=== PATIENT | female | born 1950 | race African-American/Black ===

== ENCOUNTER 2017-08-28 00:59 | Emergency (ER) | payer MEDICARE, OTHER ==
[~2017-08-28] VITALS: Ht 152.4 cm; Wt 87.1 kg
[2017-08-28 01:05] VITALS: BP 200/103
[2017-08-28 01:37] LABS: HEMATOCRIT 46.7 % (37.0-47.0); HEMOGLOBIN 14.9 G/DL (12.0-16.0); MEAN CORPUSCULAR VOLUME 91 FL (80-99); PLATELET COUNT 159 K/UL (150-450); RED CELL DISTRIBUTION WIDTH 11.7 % (11.6-14.8); WHITE BLOOD COUNT 5.9 K/UL (4.8-10.8)
[2017-08-28 01:44] LABS: ANION GAP 9 mmol/L (5-15); BLOOD UREA NITROGEN 8 mg/dL (7-18); CARBON DIOXIDE 25 MMOL/L (21-32); CHLORIDE 104 MMOL/L (98-107); POTASSIUM 3.8 MMOL/L (3.5-5.1); SODIUM 138 MMOL/L (136-145)
[2017-08-28] MEDS ORDERED: Lisinopril 20mg tab ORAL ONE (02:15)
--- NOTE | 2017-08-28 02:38 | Emergency Room Report ---
History of Present Illness General Chief Complaint: Hypertension Source: Patient, EMS Present Illness HPI This is a 67-year-old female who was recently diagnosed with high blood pressure. This occur because she went to the dentist and her blood pressure was high. She was started on lisinopril 10 mg couple weeks ago. She still have high blood pressure at home and was recently increased to 20 mg yesterday. She came in tonight because her blood pressure was still high. She felt dizzy and has headache. No chest pain. Known nausea no vomiting. No hematuria. EMS said her blood pressure at home was systolic 200. Patient also said she felt nervous because she is worried about her blood pressure being high. Allergies: Coded Allergies: No Known Allergies (Unverified , 08/28/17) Patient History Past Medical History: see triage record, old chart reviewed, HTN Past Surgical History: none Pertinent Family History: none Social History: Denies: smoking Last Menstrual Period: n/a Now: No Immunizations: other Reviewed Nursing Documentation: PMH: Agreed; PSxH: Agreed Nursing Documentation-PMH Past Medical History: No History, Except For Hx Hypertension: Yes - glaucoma Review of Systems Eye: Denies: eye pain, blurred vision ENT: Denies: ear pain, nose congestion, throat swelling Respiratory: Denies: cough, shortness of breath Cardiovascular: Denies: chest pain, palpitations Gastrointestinal: Denies: abdominal pain, diarrhea, nausea, vomiting Musculoskeletal: Denies: back pain, joint pain Skin: Denies: rash Neurological: Reports: headache; Denies: numbness Endocrine: Denies: increased thirst, increased urine Hematologic/Lymphatic: Denies: easy bruising All Other Systems: negative except mentioned in HPI Physical Exam Vital Signs Date Time Temp Pulse Resp B/P (MAP) Pulse Ox O2 Delivery O2 Flow Rate FiO2 08/28/17 00:54 98.1 80 16 200/103 97 Room Air 98.1 vitals with high blood pressure Sp02 EP Interpretation: reviewed, normal General Appearance: well appearing, no apparent distress, alert Head: normocephalic, atraumatic Eyes: right eye other - Right eye is cloudy. Chronic per patient; left eye PERRL; bilateral eye EOMI ENT: hearing grossly normal, normal pharynx Neck: full range of motion, supple, no meningismus Respiratory: chest non-tender, lungs clear, normal breath sounds Cardiovascular #1: regular rate, rhythm, no murmur Gastrointestinal: normal bowel sounds, non tender, no mass, no organomegaly, no bruit, non-distended Musculoskeletal: back normal, gait/station normal, normal range of motion Psychiatric: mood/affect normal Skin: warm/dry Medical Decision Making Diagnostic Impression: Primary Impression: Hypertension Qualified Codes: I10 - Essential (primary) hypertension ER Course Patient with high blood pressure. No evidence of endorgan damage. We'll add a diuretic to her regimen. I would not increase her blood pressure medication since he just started the 20 mg lisinopril yesterday. She is not taking any blood pressure today. Lab Results Impression labs unremarkable EKG Diagnostic Results Rate: normal Rhythm: NSR ST Segments: no acute changes Rhythm Strip Diag. Results Rhythm Strip Time: 02:37 EP Interpretation: yes Rate: 64 Rhythm: NSR, no PVC's, no ectopy CT/MRI/US Diagnostic Results CT/MRI/US Diagnostic Results : Imaging Test Ordered: CT head Impression negative per radiologist Last Vital Signs Date Time Temp Pulse Resp B/P (MAP) Pulse Ox O2 Delivery O2 Flow Rate FiO2 08/28/17 02:15 180/72 08/28/17 01:05 80 16 Room Air 08/28/17 01:05 98.1 97 98.1 Status: improved Disposition: HOME, SELF-CARE Condition: Stable Referrals: [facility] YAS GRANADOS (PCP) Additional Instructions: Follow-up with your doctor in 7 days. Return if symptom worsen. BENITEZ BAILON M.D. August 28, 2017 02:37
[2017-08-28] MEDS ORDERED: LORazepam Inj 2mg/ml 1ml IV ONE (02:45)
[2017-08-28 03:09] VITALS: BP 142/60
[2017-08-28 03:10] VITALS: BP 142/60
--- NOTE | 2017-08-28 10:09 | Diagnostic Imaging Report ---
Indication: Altered mental status, dizzy Technique: Continuous helical CT scanning of the head was performed without intravenous contrast material. Axial and coronal 5 mm sections were generated. Radiation dose was minimized using automated exposure control Dose: Total Dose Length Product - DLP 1316.[address] Dose Index - CTDIvol(s) 70.38 mGy. Comparison: none Findings: The ventricular system is normal in size and configuration. There is no shift of midline structures. No abnormal extra-axial fluid collections are noted. There is no evidence of intracerebral bleeding. No other abnormal high or low density areas are noted within the brain. Normal hernández-white differentiation. There is evidence of prior and scleral banding on the right. The included sinuses are unremarkable. The mastoids are clear. The calvarium is intact. Impression: Normal CT scan of the head without contrast material. This agrees with the preliminary interpretation provided overnight by [facility]. The CT scanner at [facility] is accredited by the [employer] and the scans are performed using protocols designed to limit radiation exposure to as low as reasonably achievable to attain images of sufficient resolution adequate for diagnostic evaluation.
--- NOTE | 2017-08-28 22:33 | Cardiology Report ---
APPROVED REPORT EKG Measurement Heart [id number] Normal sinus rhythm Possible Left atrial enlargement Borderline ECG
== END 2017-08-28 03:10 | disposition home or self-care (01) ==
LOC: EDBD 00:59 → EMR 01:20
DX: I10 Essential (primary) hypertension (principal); H40.9 Unspecified glaucoma; R41.82 Altered mental status, unspecified; R42 Dizziness and giddiness
CPT/HCPCS: 36415; 70450; 80048; 84484; 85025; 93005; 96374; 96375; 99284; J0360